=== PATIENT | female | born 1960 | race Caucasian/White ===

== ENCOUNTER 2020-07-25 16:09 | Emergency (ER) | payer OTHER ==
[~2020-07-25] VITALS: Ht 144.8 cm; Wt 63.5 kg
[~2020-07-25 16:09] MED LIST: ASPI81EC98 PO; FENO145T PO; LEVO0.0841 PO; LINA5TAB PO; LOSA25TA32 PO; METF850T PO; OMEP40EC24 PO; RAMI2.5C55 PO; [UNRECOGNIZED DRUG - CODE] PO
[2020-07-25 16:39] VITALS: BP 138/73
--- NOTE | 2020-07-25 18:13 | NUR ---
COVID SWAB COLLECTED.
[2020-07-25 18:24] VITALS: BP 138/73
--- NOTE | 2020-07-25 18:24 | NUR ---
Patient discharged with v/s stable. Written and verbal after care instructions given and explained. Patient alert, oriented and verbalized understanding of instructions. Ambulatory with steady gait. All questions addressed prior to discharge. ID band removed. Patient advised to follow up with PMD. Rx of Azithromycin 250mg, Tylenol 325mg, Albuterol inhaler, and Promethazine DM 6.25mg-15mg/5ml given. Patient educated on indication of medication including possible reaction and side effects. Opportunity to ask questions provided and answered.
== END 2020-07-25 18:24 | disposition home or self-care (01) ==
LOC: MED 16:09
DX: R05 Cough (principal); Z20.828 Contact with and (suspected) exposure to other viral communicable diseases; E11.9 Type 2 diabetes mellitus without complications; I10 Essential (primary) hypertension; E07.9 Disorder of thyroid, unspecified; Z79.899 Other long term (current) drug therapy
CPT/HCPCS: 71045; 99284; U0003

== ENCOUNTER 2022-01-28 12:35 | Emergency (ER) | payer OTHER ==
[~2022-01-28] VITALS: Ht 127 cm; Wt 62.8 kg
[~2022-01-28 12:35] MED LIST changes: +METF-713 PO; -METF850T PO
[2022-01-28 13:16] VITALS: BP 122/80
--- NOTE | 2022-01-28 13:21 | NUR ---
PT AMB TO [facility] W/O ASST
[2022-01-28 14:32] LABS: BASOPHILS # (AUTO) 0.1 K/uL (0.00-0.22); BASOPHILS % (AUTO) 0.3 % (0.0-2.0); EOSINOPHILS # (AUTO) 0.2 K/uL (0-0.4); EOSINOPHILS % (AUTO) 0.9 % (0.0-4.0); HEMATOCRIT 36.5 % (36-48); HEMOGLOBIN 11.8 g/dL (12.0-16.0); LYMPHOCYTES # (AUTO) 3.2 K/uL (2.5-16.5); LYMPHOCYTES % (AUTO) 16.8 % (20.5-51.1); MEAN CORPUSCULAR HEMOGLOBIN 28 pg (27-31); MEAN CORPUSCULAR HGB CONC 32 g/dL (33-37); MEAN CORPUSCULAR VOLUME 85.4 fL (80-94); MONOCYTES # (AUTO) 1.5 K/uL (0.8-1.0); PLATELET COUNT (AUTO) 225 K/uL (140-450); RED BLOOD CELL COUNT(AUTO) 4.27 MIL/uL (4.20-5.40); RED CELL DISTRIBUTION WIDTH 14.3 % (11.6-13.7); WHITE BLOOD COUNT (AUTO) 18.9 K/uL (4.8-10.8)
[2022-01-28] MEDS ORDERED: NAPR-1704 PO (14:39)
[2022-01-28] MEDS ORDERED: CEPH-588 PO (14:39)
[2022-01-28] MEDS ORDERED: LIDOCAINE MPF 1% 5 ML ONE (14:49)
[2022-01-28] MEDS ORDERED: cefTRIAXone 1,000 MG VIAL ONE (14:49)
--- NOTE | 2022-01-28 14:50 | NUR ---
61/F PRESENTS TO ED WITH C/O LEFT THIGH ABSCESS X1 WEEK. PATIENT REPORTS BLOOD AND CLEAR FLUID DRAINING FROM SITE TODAY, DENIES FEVERS, CHILLS. REPORTS 5/10 PAIN THAT WORSENS WITH WALKING.
[2022-01-28 14:54] LABS: ALBUMIN 3.7 g/dL (3.4-5.0); ANION GAP 15.6 (8-16); POTASSIUM 4.6 mmol/L (3.5-5.1); TOTAL BILIRUBIN 0.4 mg/dL (0.0-1.0)
[2022-01-28] MEDS: cefTRIAXone 1,000 MG in LIDOCAINE MPF 1% 2.1 ML IM ONE (14:55)
[2022-01-28] MEDS: KETOROLAC 30 MG/ML VIAL IM ONE (14:56)
[2022-01-28 15:25] VITALS: BP 120/67
--- NOTE | 2022-01-28 15:25 | NUR ---
Patient discharged with v/s stable. Written and verbal after care instructions ABOUT CELLULITIS given and explained. Patient alert, oriented and verbalized understanding of instructions. Ambulatory with steady gait. All questions addressed prior to discharge. ID band removed. Patient advised to follow up with PMD. Rx of KEFLEX AND NAPROSYN given. Patient educated on indication of medication including possible reaction and side effects. Opportunity to ask questions provided and answered.
== END 2022-01-28 15:25 | disposition home or self-care (01) ==
LOC: MED 12:35
DX: S71.102A Unspecified open wound, left thigh, initial encounter (principal); E11.9 Type 2 diabetes mellitus without complications; K21.9 Gastro-esophageal reflux disease without esophagitis; I10 Essential (primary) hypertension; E07.9 Disorder of thyroid, unspecified; Z79.84 Long term (current) use of oral hypoglycemic drugs; Z79.899 Other long term (current) drug therapy; Z79.82 Long term (current) use of aspirin; X58.XXXA Exposure to other specified factors, initial encounter; Y93.89 Activity, other specified; Y92.89 Other specified places as the place of occurrence of the external cause; Y99.8 Other external cause status
CPT/HCPCS: 36415; 80053; 85025; 87040; 96372; 99284; J0696; J1885; J2001

== ENCOUNTER 2023-04-14 12:00 | Emergency (ER) | payer OTHER ==
[~2023-04-14] VITALS: Ht 132.1 cm; Wt 63.5 kg
[~2023-04-14 12:00] MED LIST changes: +CEPH-588 PO; +NAPR-1704 PO
[2023-04-14 12:31] VITALS: BP 126/64; PULSE 87; RESP 18; TEMP 98.3; O2SAT 98
[2023-04-14] MEDS ORDERED: cefTRIAXone 1,000 MG in LIDOCAINE MPF 1% 2.1 ML IM ONE (13:00)
[2023-04-14] MEDS ORDERED: SULF-58 PO (13:09)
[2023-04-14] MEDS ORDERED: CEPH-588 PO (13:10)
[2023-04-14] MEDS ORDERED: cefTRIAXone 1,000 MG VIAL ONE (13:27)
[2023-04-14] MEDS ORDERED: LIDOCAINE MPF 1% 5 ML ONE (13:27)
[2023-04-14] MEDS ORDERED: BACITRACIN OINT 500 UNITS/GM PKT TP ONE ×2 (13:28→13:30)
[2023-04-14 13:40] VITALS: O2SAT 98
== END 2023-04-14 14:06 | disposition home or self-care (01) ==
LOC: MED 12:00
DX: L03.221 Cellulitis of neck (principal); L02.11 Cutaneous abscess of neck; E11.9 Type 2 diabetes mellitus without complications; K21.9 Gastro-esophageal reflux disease without esophagitis; I10 Essential (primary) hypertension; E07.9 Disorder of thyroid, unspecified; Z79.899 Other long term (current) drug therapy; Z79.84 Long term (current) use of oral hypoglycemic drugs
CPT/HCPCS: 82948; 96372; 99283; J0696; J2001